=== PATIENT | male | born 1975 | race Hispanic/Latino ===

== ENCOUNTER 2021-11-28 11:16 | Observation (INO) | payer BC ==
[~2021-11-28] VITALS: Ht 188 cm; Wt 95.7 kg
[2021-11-28] MEDS ORDERED: DILTIAZEM HCL 5 MG/ML 5 ML VIAL IV STA (11:36)
[2021-11-28] MEDS ORDERED: SODIUM CHLORIDE 0.9% 1000ML 1,000 ML IV STA (11:36)
[2021-11-28 11:56] LABS: BASOPHILS % 0.3 % (0.0-1.0); EOSINOPHILS % 0.3 % (0.0-6.0); HEMATOCRIT 41.8 % (38.2-49.6); HEMOGLOBIN 14.5 g/dL (14.0-18.0); LYMPHOCYTES # (AUTO) 1.2 (1.0-3.2); LYMPHOCYTES % 18.4 % (18.0-39.1); MEAN CORPUSCULAR HEMOGLOBIN 31.2 pg (28-32); MEAN CORPUSCULAR HGB CONC 34.7 g/dL (31-35); MEAN CORPUSCULAR VOLUME 89.9 fL (81-99); MONOCYTES # (AUTO) 0.8 (0.2-0.8); MONOCYTES % 12.8 % (4.4-11.3); NEUTROPHILS # (AUTO) 4.3 (2.1-6.9); NEUTROPHILS % 67.7 % (38.7-80.0); PLATELET COUNT 301 x10e3/uL (140-360); RED BLOOD COUNT 4.65 x10e6/uL (4.3-5.7); RED CELL DISTRIBUTION WIDTH 11.8 % (11.7-14.4)
[2021-11-28] MEDS ORDERED: AMIODARONE 900MG 500 ML IV ONE ×2 (12:03→12:15)
[2021-11-28] MEDS ORDERED: AMIODARONE HCL INJ 150MG/3ML ONE (12:04)
[2021-11-28 12:14] LABS: INR 1.05; PROTHROMBIN TIME 14.6 seconds (11.9-14.5)
[2021-11-28 12:15] LABS: PARTIAL THROMBOPLASTIN TIME 35.4 seconds (23.8-35.5)
[2021-11-28] MEDS ORDERED: DIGOXIN INJ 0.25 MG/ML 2 ML AMP IV ONE (12:15)
[2021-11-28 12:23] LABS: ALBUMIN 3.1 g/dL (3.5-5.0); ALBUMIN/GLOBULIN RATIO 0.7 (0.8-2.0); ANION GAP 15.8 mmol/L (8-16); CALCIUM 8.8 mg/dL (8.4-10.2); CREATININE, SERUM 1.16 mg/dL (0.72-1.25); MAGNESIUM 2.1 MG/DL (1.3-2.1); POTASSIUM 3.8 mmol/L (3.5-5.1)
[2021-11-28] MEDS: AMIODARONE 900MG 900 MG in Premix Bag 1 BAG IV SCH ×2 (12:23→12:24)
[2021-11-28] MEDS ORDERED: AMIODARONE HCL 150 MG/100 ML BAG IV ONE (12:30)
[2021-11-28] MEDS ORDERED: METOPROLOL TARTRATE INJ 1 MG/ML VIAL IV ONE (12:30)
[2021-11-28 12:43] LABS: CREATINE KINASE MB 7.7 ng/mL (0-5.0); THYROID STIMULATING HORMONE 0.914 uIU/mL (0.350-4.940)
[2021-11-28] MEDS ORDERED: ASPIRIN 81 MG CHEW TAB PO ONE (12:45)
[2021-11-28] MEDS ORDERED: SODIUM CHLORIDE FLUSH 10 ML SYR INJ PRN (12:45)
[2021-11-28] MEDS ORDERED: ONDANSETRON HCL INJ 2MG/ML 2ML 2 MG/ML VIAL IV PRN (12:45)
[2021-11-28] MEDS: AMIODARONE HCL 200 MG TAB PO SCH ×2 (13:03→21:27)
[2021-11-28] MEDS ORDERED: IOPAMIDOL 370 MG/ML 100 ML INFUS..BTL INJ ONE (14:12)
[2021-11-28 16:30] VITALS: BP 117/81
[2021-11-28 16:35] VITALS: BP 128/82
[2021-11-28 16:37] VITALS: BP 128/82
[2021-11-28 20:00] VITALS: BP 123/79
[2021-11-28 20:12] LABS: CREATINE KINASE MB 4.9 ng/mL (0-5.0)
[2021-11-28 21:00] VITALS: BP 123/79
[2021-11-28 22:33] LABS: CREATINE KINASE MB 4.1 ng/mL (0-5.0)
[2021-11-28 23:53] LABS: AMPHETAMINES SCREEN,URINE NEGATIVE (NEGATIVE); BENZODIAZEPINES SCREEN,URINE NEGATIVE (NEGATIVE); PHENCYCLIDINE SCREEN,URINE NEGATIVE (NEGATIVE)
[2021-11-29] VITALS (8 sets, daily range): BP systolic 129–143; BP diastolic 85–97
[2021-11-29 05:47] LABS: BASOPHILS % 0.5 % (0.0-1.0); EOSINOPHILS % 0.8 % (0.0-6.0); HEMATOCRIT 36.4 % (38.2-49.6); HEMOGLOBIN 12.7 g/dL (14.0-18.0); LYMPHOCYTES # (AUTO) 0.9 (1.0-3.2); LYMPHOCYTES % 23.2 % (18.0-39.1); MEAN CORPUSCULAR HEMOGLOBIN 31.2 pg (28-32); MEAN CORPUSCULAR HGB CONC 34.9 g/dL (31-35); MEAN CORPUSCULAR VOLUME 89.4 fL (81-99); MONOCYTES # (AUTO) 0.3 (0.2-0.8); MONOCYTES % 8.4 % (4.4-11.3); NEUTROPHILS # (AUTO) 2.5 (2.1-6.9); NEUTROPHILS % 66.6 % (38.7-80.0); PLATELET COUNT 263 x10e3/uL (140-360); RED BLOOD COUNT 4.07 x10e6/uL (4.3-5.7); RED CELL DISTRIBUTION WIDTH 11.9 % (11.7-14.4)
[2021-11-29 06:17] LABS: CREATINE KINASE MB 3.4 ng/mL (0-5.0)
[2021-11-29 06:24] LABS: ANION GAP 11.2 mmol/L (8-16); CALCIUM 8.4 mg/dL (8.4-10.2); CHOL/HDL RATIO 6.5 (3.9-4.7); CREATININE, SERUM 0.79 mg/dL (0.72-1.25); POTASSIUM 4.2 mmol/L (3.5-5.1)
[2021-11-29] MEDS: AMIODARONE HCL 200 MG TAB PO SCH ×3 (09:41→21:22)
[2021-11-29] MEDS: METOPROLOL TARTRATE 50 MG TAB PO SCH (16:23)
[2021-11-30 01:38] VITALS: BP 115/94
[2021-11-30 05:44] VITALS: BP 133/93
[2021-11-30 08:04] VITALS: BP 134/99
[2021-11-30 08:05] VITALS: BP 134/99
[2021-11-30] MEDS: METOPROLOL TARTRATE 50 MG TAB PO SCH (09:06)
[2021-11-30] MEDS: AMIODARONE HCL 200 MG TAB PO SCH (09:06)
[2021-11-30 12:01] VITALS: BP 131/84
[2021-11-30] MEDS ORDERED: METOPROLOL SUC100 MG PO (12:21)
[2021-11-30] MEDS ORDERED: ASPIRIN81 MG PO (12:21)
== END 2021-11-30 13:40 | disposition home or self-care (01) ==
LOC: ER 11:32 → INTOOBSV 12:42 → ERHOLD 12:42 → MED/SURG2 14:02
PROVIDERS: ADMIT Internal Medicine; ATTEND Internal Medicine
DX: I48.0 Paroxysmal atrial fibrillation (principal); I10 Essential (primary) hypertension; I45.10 Unspecified right bundle-branch block; Z20.822 Contact with and (suspected) exposure to COVID-19; I48.92 Unspecified atrial flutter
CPT/HCPCS: 36415 ×2; 71045; 71260; 80048; 80053; 80061; 80307; 82550 ×2; 82553 ×2; 83735; 83880; 84443; 84484 ×2; 85025 ×2; 85379; 85610; 85730; 93005 ×2; 93306; 94799; 99285; G0378 ×3; J0282; J1160; J7030; Q9967; U0002